=== PATIENT | male | born 1955 | race Caucasian/White ===

== ENCOUNTER 2020-06-06 09:47 | Inpatient (IN) | payer OTHER, MEDICAID ==
[~2020-06-06] VITALS: Ht 182.9 cm; Wt 115.1 kg
[2020-06-06 14:10] LABS: Basophils # (auto) 0.1 10 ^3/uL (0-0.2); Basophils % (auto) 0.9 % (0.0-2.0); Eosinophils # (auto) 0.5 10 ^3/uL (0-0.8); Eosinophils % (auto) 5.2 % (0.0-7.0); Hematocrit 32.1 % (41.0-53.0); Lymphocytes # (auto) 0.6 10 ^3/uL (0.4-5.4); Lymphocytes % (auto) 6.1 % (10.0-50.0); Mean Corpuscular Hemoglobin 31.7 pg (28.0-32.0); Mean Corpuscular Hgb Conc. 34.1 g/dL (32.0-36.0); Mean Corpuscular Volume 92.8 fL (80.0-100.0); Monocytes # (auto) 0.8 10 ^3/uL (0-1.3); Monocytes % (auto) 9.1 % (0.0-12.0); Neutrophils # (auto) 7.2 10 ^3/uL (1.6-8.6); Neutrophils % (auto) 78.7 % (37.0-80.0); Platelet Count (auto) 264 10^3/uL (140-450); Red Blood Cells 3.46 10^6/uL (4.5-5.90); Red Cell Distribution Width 18.3 % (11.8-14.3); White Blood Cell 9.2 10^3/uL (4.4-10.8)
[2020-06-06 14:21] LABS: INR 1.67 (0.9-1.15); Partial Thromboplastin Time 37.5 sec (23.0-31.2)
[2020-06-06 14:28] LABS: Anion Gap 7 (5-15); Blood Urea Nitrogen 21 mg/dL (7-18); Calcium 7.9 mg/dL (8.5-10.1); Carbon Dioxide 29 mmol/L (21-32); Chloride 100 mmol/L (98-107); Glucose 221 mg/dL (74-106); Lipase 1155 U/L (73-393); Potassium 4.3 mmol/L (3.5-5.1); Sodium 136 mmol/L (136-145)
[2020-06-06 14:38] LABS: Alanine Aminotransferase 49 U/L (16-61); Alkaline Phosphatase 254 U/L (45-117); Amylase 65 U/L (25-115); Aspartate Aminotransferase 72 U/L (15-37); BUN/Creatinine Ratio 4.8; Bilirubin, Total 19.9 mg/dL (0.2-1.0); GFR African American 18 mL/min; GFR Non-African American 15 mL/min
[2020-06-07] MEDS ORDERED: DOCUSATE SOD 100 MG CAP PO PRN (00:30)
[2020-06-07] MEDS ORDERED: ACETAMINOPHEN 325 MG TAB PO PRN (00:30)
[2020-06-07] MEDS ORDERED: HYDROcodone-ACET 5/325MG TAB PO PRN (00:30)
[2020-06-07] MEDS ORDERED: DEXTROSE (50%) 50ML SYRG IV PRN (00:30)
[2020-06-07] MEDS ORDERED: NITROGLYCERIN 0.4 MG SL TAB SL PRN (00:30)
[2020-06-07] MEDS ORDERED: MORPHINE SULF INJ 2 MG/ML SYRINGE 1ML IV PRN (00:30)
[2020-06-07 09:19] LABS: Basophils # (auto) 0.1 10 ^3/uL (0-0.2); Basophils % (auto) 1.2 % (0.0-2.0); Eosinophils # (auto) 0.2 10 ^3/uL (0-0.8); Hematocrit 30.3 % (41.0-53.0); Hemoglobin 10.5 g/dL (13.5-17.5); Lymphocytes # (auto) 0.6 10 ^3/uL (0.4-5.4); Lymphocytes % (auto) 5.4 % (10.0-50.0); Mean Corpuscular Hemoglobin 32.3 pg (28.0-32.0); Mean Corpuscular Hgb Conc. 34.7 g/dL (32.0-36.0); Mean Corpuscular Volume 92.9 fL (80.0-100.0); Monocytes # (auto) 1.1 10 ^3/uL (0-1.3); Monocytes % (auto) 9.4 % (0.0-12.0); Neutrophils # (auto) 9.5 10 ^3/uL (1.6-8.6); Platelet Count (auto) 259 10^3/uL (140-450); Red Blood Cells 3.26 10^6/uL (4.5-5.90); Red Cell Distribution Width 18.6 % (11.8-14.3); White Blood Cell 11.6 10^3/uL (4.4-10.8)
[2020-06-07] MEDS: SODIUM CHLOR 0.9% PF (SALINE LOCK) 10ML VIAL/SYR IV SCH ×3 (09:52→22:56)
[2020-06-07] MEDS: ACCU-CHEK COMFORT CURVE STRIP VI SCH ×4 (09:52→22:57)
[2020-06-07] MEDS: InsuLIN REG 1unit/0.01ml Soln (100units/ml) SC SCH ×4 (09:53→22:56)
[2020-06-07 10:26] LABS: BUN/Creatinine Ratio 5.1; Bilirubin, Total 20.6 mg/dL (0.2-1.0); Calcium 7.9 mg/dL (8.5-10.1); Potassium 4.9 mmol/L (3.5-5.1); Total Protein 5.9 g/dL (6.4-8.2)
[2020-06-07] MEDS: ZINC SULFATE 220mg CAP or TAB PO SCH (11:04)
[2020-06-07] MEDS: HEPARIN SODIUM (PORCINE) 5000 UNITS/ML 1ML VIAL SC SCH (11:05)
[2020-06-07] MEDS: FAMOTIDINE 20 MG TAB PO SCH ×2 (11:05→22:56)
[2020-06-07] MEDS: MULTIPLE VITAMIN TAB PO SCH (11:05)
[2020-06-07] MEDS: ASCORBIC ACID 500 MG TAB PO SCH ×2 (11:05→22:56)
[2020-06-07] MEDS: MORPHINE SULFATE 4 MG/ML SYR/VIAL IV PRN (22:57)
[2020-06-07] MEDS: ONDANSETRON HCL 4 MG/2 ML VIAL IV PRN (22:57)
[2020-06-08] MEDS: HEPARIN SODIUM (PORCINE) 5000 UNITS/ML 1ML VIAL SC SCH ×3 (02:35→23:47)
[2020-06-08 05:47] LABS: Basophils # (auto) 0.1 10 ^3/uL (0-0.2); Basophils % (auto) 0.8 % (0.0-2.0); Eosinophils # (auto) 0.4 10 ^3/uL (0-0.8); Eosinophils % (auto) 4.1 % (0.0-7.0); Hematocrit 31.8 % (41.0-53.0); Hemoglobin 10.8 g/dL (13.5-17.5); Lymphocytes # (auto) 0.7 10 ^3/uL (0.4-5.4); Mean Corpuscular Hemoglobin 31.7 pg (28.0-32.0); Mean Corpuscular Hgb Conc. 33.9 g/dL (32.0-36.0); Mean Corpuscular Volume 93.4 fL (80.0-100.0); Monocytes # (auto) 1.2 10 ^3/uL (0-1.3); Monocytes % (auto) 11.1 % (0.0-12.0); Neutrophils # (auto) 8.1 10 ^3/uL (1.6-8.6); Platelet Count (auto) 263 10^3/uL (140-450); Red Cell Distribution Width 18.6 % (11.8-14.3); White Blood Cell 10.5 10^3/uL (4.4-10.8)
[2020-06-08 05:59] LABS: Albumin 1.9 g/dL (3.4-5.0); Calcium 8.1 mg/dL (8.5-10.1); Potassium 4.7 mmol/L (3.5-5.1)
[2020-06-08 06:03] LABS: BUN/Creatinine Ratio 5.5; Bilirubin, Total 19.6 mg/dL (0.2-1.0); Total Protein 5.6 g/dL (6.4-8.2)
[2020-06-08] MEDS ORDERED: SODIUM CHL 0.9% 1000 ML BAG XX ONE (07:00)
[2020-06-08] MEDS: InsuLIN REG 1unit/0.01ml Soln (100units/ml) SC SCH ×4 (07:49→23:48)
[2020-06-08] MEDS: ACCU-CHEK COMFORT CURVE STRIP VI SCH ×4 (07:49→23:48)
[2020-06-08] MEDS: SODIUM CHLOR 0.9% PF (SALINE LOCK) 10ML VIAL/SYR IV SCH ×2 (07:49→14:03)
[2020-06-08] MEDS: ZINC SULFATE 220mg CAP or TAB PO SCH (09:10)
[2020-06-08] MEDS: FAMOTIDINE 20 MG TAB PO SCH ×2 (09:10→23:46)
[2020-06-08] MEDS: MULTIPLE VITAMIN TAB PO SCH (09:10)
[2020-06-08] MEDS: ASCORBIC ACID 500 MG TAB PO SCH ×2 (09:10→23:46)
[2020-06-09] VITALS: BP 110/57
[2020-06-09] MEDS: SODIUM CHLOR 0.9% PF (SALINE LOCK) 10ML VIAL/SYR IV SCH ×5 (00:01→23:00)
[2020-06-09] MEDS: InsuLIN REG 1unit/0.01ml Soln (100units/ml) SC SCH ×4 (06:53→22:00)
[2020-06-09] MEDS: ACCU-CHEK COMFORT CURVE STRIP VI SCH ×4 (06:59→22:00)
[2020-06-09 08:31] VITALS: BP 100/58
[2020-06-09] MEDS: HEPARIN SODIUM (PORCINE) 5000 UNITS/ML 1ML VIAL SC SCH ×2 (11:45→22:00)
[2020-06-09] MEDS: MULTIPLE VITAMIN TAB PO SCH (12:36)
[2020-06-09] MEDS: ZINC SULFATE 220mg CAP or TAB PO SCH (12:36)
[2020-06-09] MEDS: FAMOTIDINE 20 MG TAB PO SCH ×2 (12:37→22:00)
[2020-06-09] MEDS: ASCORBIC ACID 500 MG TAB PO SCH ×2 (12:37→22:00)
[2020-06-09 12:40] VITALS: BP 111/52
[2020-06-09 17:00] VITALS: BP 113/58
[2020-06-10] VITALS: BP 125/76
[2020-06-10 05:31] LABS: Urine Bacteria NONE SEEN /hpf (None Seen); Urine Blood Negative /uL (Negative); Urine Mucus FEW (None Seen); Urine Specific Gravity 1.009 (1.001-1.035); Urine Sperm PRESENT /hpf (None Seen); Urine WBC 9 /hpf (0 - 3)
[2020-06-10 05:47] LABS: Basophils # (auto) 0.1 10 ^3/uL (0-0.2); Basophils % (auto) 1.3 % (0.0-2.0); Eosinophils # (auto) 0.4 10 ^3/uL (0-0.8); Eosinophils % (auto) 4.8 % (0.0-7.0); Hematocrit 30.5 % (41.0-53.0); Hemoglobin 10.3 g/dL (13.5-17.5); Lymphocytes # (auto) 0.9 10 ^3/uL (0.4-5.4); Lymphocytes % (auto) 9.9 % (10.0-50.0); Mean Corpuscular Hemoglobin 31.2 pg (28.0-32.0); Mean Corpuscular Hgb Conc. 33.6 g/dL (32.0-36.0); Mean Corpuscular Volume 92.9 fL (80.0-100.0); Monocytes # (auto) 0.9 10 ^3/uL (0-1.3); Monocytes % (auto) 10.1 % (0.0-12.0); Neutrophils # (auto) 6.5 10 ^3/uL (1.6-8.6); Neutrophils % (auto) 73.9 % (37.0-80.0); Nucleated Red Blood Cells % 0.1 %; Platelet Count (auto) 316 10^3/uL (140-450); Red Blood Cells 3.28 10^6/uL (4.5-5.90); Red Cell Distribution Width 18.8 % (11.8-14.3); White Blood Cell 8.8 10^3/uL (4.4-10.8)
[2020-06-10 05:52] LABS: Potassium 4.1 mmol/L (3.5-5.1)
[2020-06-10 05:55] LABS: Albumin 1.9 g/dL (3.4-5.0); Magnesium 2.1 mg/dL (1.6-2.6)
[2020-06-10] MEDS: InsuLIN REG 1unit/0.01ml Soln (100units/ml) SC SCH ×4 (06:07→22:00)
[2020-06-10 06:08] LABS: Bilirubin, Total 21.6 mg/dL (0.2-1.0); Total Protein 5.7 g/dL (6.4-8.2)
[2020-06-10] MEDS: ACCU-CHEK COMFORT CURVE STRIP VI SCH ×4 (06:09→22:00)
[2020-06-10 06:17] LABS: BUN/Creatinine Ratio 4.8
[2020-06-10] MEDS ORDERED: SODIUM CHL 0.9% 1000 ML BAG XX ONE (07:00)
[2020-06-10 08:00] VITALS: BP 122/71
[2020-06-10] MEDS: HEPARIN SODIUM (PORCINE) 5000 UNITS/ML 1ML VIAL SC SCH ×2 (10:00→22:00)
[2020-06-10] MEDS ORDERED: CILO100T PO (10:12)
[2020-06-10] MEDS ORDERED: ASPI-498 OR (10:12)
[2020-06-10] MEDS ORDERED: ATOR20TA PO (10:12)
[2020-06-10] MEDS ORDERED: DARB40IN3 IJ (10:12)
[2020-06-10] MEDS ORDERED: CALC0.25 PO (10:12)
[2020-06-10] MEDS ORDERED: CINA30TA2 PO (10:12)
[2020-06-10] MEDS ORDERED: SEVE800T8 PO (10:12)
[2020-06-10] MEDS ORDERED: BUME2TAB5 PO (10:12)
[2020-06-10] MEDS ORDERED: TAMS0.4C36 PO (10:12)
[2020-06-10] MEDS: ZINC SULFATE 220mg CAP or TAB PO SCH (10:13)
[2020-06-10] MEDS: MULTIPLE VITAMIN TAB PO SCH (10:13)
[2020-06-10] MEDS: FAMOTIDINE 20 MG TAB PO SCH ×2 (13:04→21:54)
[2020-06-10] MEDS: ASCORBIC ACID 500 MG TAB PO SCH ×2 (13:06→21:54)
[2020-06-10 16:12] VITALS: BP 118/57
[2020-06-10] MEDS: SODIUM CHLOR 0.9% PF (SALINE LOCK) 10ML VIAL/SYR IV SCH ×2 (18:31→21:54)
[2020-06-10 22:00] VITALS: BP 115/54
[2020-06-11] VITALS (12 sets, daily range): BP systolic 110–136; BP diastolic 61–74
[2020-06-11] MEDS: InsuLIN REG 1unit/0.01ml Soln (100units/ml) SC SCH ×4 (05:48→20:26)
[2020-06-11] MEDS: SODIUM CHLOR 0.9% PF (SALINE LOCK) 10ML VIAL/SYR IV SCH ×3 (05:48→20:25)
[2020-06-11] MEDS: ACCU-CHEK COMFORT CURVE STRIP VI SCH ×4 (05:49→20:26)
[2020-06-11 07:25] LABS: Basophils # (auto) 0.1 10 ^3/uL (0-0.2); Basophils % (auto) 1.6 % (0.0-2.0); Eosinophils # (auto) 0.5 10 ^3/uL (0-0.8); Eosinophils % (auto) 5.6 % (0.0-7.0); Hematocrit 26.4 % (41.0-53.0); Hemoglobin 9.3 g/dL (13.5-17.5); Lymphocytes # (auto) 0.6 10 ^3/uL (0.4-5.4); Lymphocytes % (auto) 7.9 % (10.0-50.0); Mean Corpuscular Hgb Conc. 35.3 g/dL (32.0-36.0); Mean Corpuscular Volume 90.8 fL (80.0-100.0); Monocytes # (auto) 1.1 10 ^3/uL (0-1.3); Monocytes % (auto) 14.1 % (0.0-12.0); Neutrophils # (auto) 5.7 10 ^3/uL (1.6-8.6); Neutrophils % (auto) 70.8 % (37.0-80.0); Nucleated Red Blood Cells % 0.1 %; Platelet Count (auto) 275 10^3/uL (140-450); Red Blood Cells 2.91 10^6/uL (4.5-5.90); Red Cell Distribution Width 18.6 % (11.8-14.3)
[2020-06-11 07:40] LABS: Potassium 3.8 mmol/L (3.5-5.1)
[2020-06-11 07:53] LABS: Albumin 1.7 g/dL (3.4-5.0); Bilirubin, Total 18.5 mg/dL (0.2-1.0); Calcium 7.6 mg/dL (8.5-10.1); Magnesium 1.9 mg/dL (1.6-2.6); Total Protein 5.3 g/dL (6.4-8.2)
[2020-06-11 07:56] LABS: INR 2.45 (0.9-1.15)
[2020-06-11] MEDS: HEPARIN SODIUM (PORCINE) 5000 UNITS/ML 1ML VIAL SC SCH ×2 (10:00→20:27)
[2020-06-11] MEDS: FAMOTIDINE 20 MG TAB PO SCH ×2 (10:00→20:25)
[2020-06-11] MEDS: MULTIPLE VITAMIN TAB PO SCH (10:00)
[2020-06-11] MEDS: ZINC SULFATE 220mg CAP or TAB PO SCH (10:00)
[2020-06-11] MEDS: ASCORBIC ACID 500 MG TAB PO SCH ×2 (10:00→20:25)
[2020-06-12] MEDS: ACCU-CHEK COMFORT CURVE STRIP VI SCH ×4 (05:41→23:20)
[2020-06-12] MEDS: SODIUM CHLOR 0.9% PF (SALINE LOCK) 10ML VIAL/SYR IV SCH ×3 (05:41→23:02)
[2020-06-12] MEDS: InsuLIN REG 1unit/0.01ml Soln (100units/ml) SC SCH ×4 (05:42→23:25)
[2020-06-12] MEDS ORDERED: SODIUM CHL 0.9% 1000 ML BAG XX ONE (07:00)
[2020-06-12 08:44] LABS: Basophils # (auto) 0.1 10 ^3/uL (0-0.2); Basophils % (auto) 1.6 % (0.0-2.0); Eosinophils # (auto) 0.5 10 ^3/uL (0-0.8); Eosinophils % (auto) 5.4 % (0.0-7.0); Hematocrit 26.5 % (41.0-53.0); Hemoglobin 9.3 g/dL (13.5-17.5); Lymphocytes # (auto) 0.5 10 ^3/uL (0.4-5.4); Lymphocytes % (auto) 5.5 % (10.0-50.0); Mean Corpuscular Hemoglobin 32.2 pg (28.0-32.0); Mean Corpuscular Hgb Conc. 35.2 g/dL (32.0-36.0); Mean Corpuscular Volume 91.6 fL (80.0-100.0); Monocytes # (auto) 1.2 10 ^3/uL (0-1.3); Monocytes % (auto) 13.2 % (0.0-12.0); Neutrophils # (auto) 6.7 10 ^3/uL (1.6-8.6); Neutrophils % (auto) 74.3 % (37.0-80.0); Platelet Count (auto) 269 10^3/uL (140-450); Red Cell Distribution Width 18.5 % (11.8-14.3); White Blood Cell 9.1 10^3/uL (4.4-10.8)
[2020-06-12 09:00] VITALS: BP 141/75
[2020-06-12] MEDS ORDERED: IOHEXOL 300 MG/ML 100ML BOTTLE IJ ONE (09:15)
[2020-06-12 09:16] LABS: Potassium 4.1 mmol/L (3.5-5.1)
[2020-06-12 09:27] LABS: Albumin 1.8 g/dL (3.4-5.0); BUN/Creatinine Ratio 5.1; Bilirubin, Total 20.6 mg/dL (0.2-1.0); Magnesium 2.1 mg/dL (1.6-2.6); Total Protein 5.6 g/dL (6.4-8.2)
[2020-06-12] MEDS: MULTIPLE VITAMIN TAB PO SCH (10:00)
[2020-06-12] MEDS: ASCORBIC ACID 500 MG TAB PO SCH ×2 (10:00→23:06)
[2020-06-12] MEDS: FAMOTIDINE 20 MG TAB PO SCH ×2 (10:00→23:06)
[2020-06-12] MEDS: HEPARIN SODIUM (PORCINE) 5000 UNITS/ML 1ML VIAL SC SCH (10:00)
[2020-06-12] MEDS: ZINC SULFATE 220mg CAP or TAB PO SCH (10:00)
[2020-06-12 10:29] LABS: INR 2.5 (0.9-1.15); Partial Thromboplastin Time 42.4 sec (23.0-31.2)
[2020-06-12] MEDS ORDERED: fentaNYL CITRATE 100 MCG/2 ML VL ONE (10:48)
[2020-06-12] MEDS ORDERED: MIDAZOLAM HCL 1MG/1ML-2 ML VIAL ONE (10:48)
[2020-06-12] MEDS ORDERED: PROPOFOL 10 MG/ML 20 ML IV ONE (10:53)
[2020-06-12] MEDS ORDERED: ePHEDrine SULFATE 50 MG/ML AMP IV PRN (11:30)
[2020-06-12] MEDS ORDERED: fentaNYL CITRATE 100 MCG/2 ML VL IV PRN (11:30)
[2020-06-12] MEDS ORDERED: ONDANSETRON HCL 4 MG/2 ML VIAL IV PRN (11:30)
[2020-06-12] MEDS ORDERED: hydrALAZINE HCL 20 MG/ML VL IV PRN (11:30)
[2020-06-12 13:00] VITALS: BP 145/68
[2020-06-12] MEDS ORDERED: EPOETIN ALFA 10,000 UNIT/1 ML VIAL SC ONE (21:00)
[2020-06-12] MEDS ORDERED: PHYTONADIONE(VitK) ORAL Susp 10mg/10ml(1mg/ml) PO ONE (21:45)
[2020-06-12] MEDS ORDERED: VANCOMYCIN PER PHARMACY 0 MG IV SCH (21:45)
[2020-06-12 22:00] VITALS: BP 125/62
[2020-06-12] MEDS ORDERED: VANCOMYCIN 1GM/250ML 250 ML IV ONE (22:00)
[2020-06-12] MEDS ORDERED: PHYTONADIONE(VIT K) 5 MG TAB PO ONE (23:30)
[2020-06-13] VITALS (16 sets, daily range): BP systolic 107–161; BP diastolic 52–79
[2020-06-13] MEDS: InsuLIN REG 1unit/0.01ml Soln (100units/ml) SC SCH ×4 (06:33→21:44)
[2020-06-13] MEDS: SODIUM CHLOR 0.9% PF (SALINE LOCK) 10ML VIAL/SYR IV SCH ×3 (06:33→21:48)
[2020-06-13] MEDS: ACCU-CHEK COMFORT CURVE STRIP VI SCH ×4 (06:34→21:48)
[2020-06-13] MEDS ORDERED: SODIUM CHL 0.9% 1000 ML BAG XX ONE (07:00)
[2020-06-13 09:57] LABS: Basophils # (auto) 0.1 10 ^3/uL (0-0.2); Eosinophils # (auto) 0.7 10 ^3/uL (0-0.8); Eosinophils % (auto) 7.4 % (0.0-7.0); Hematocrit 27.9 % (41.0-53.0); Hemoglobin 9.8 g/dL (13.5-17.5); Lymphocytes # (auto) 0.5 10 ^3/uL (0.4-5.4); Lymphocytes % (auto) 4.9 % (10.0-50.0); Mean Corpuscular Hemoglobin 31.3 pg (28.0-32.0); Mean Corpuscular Volume 89.4 fL (80.0-100.0); Monocytes % (auto) 9.9 % (0.0-12.0); Neutrophils # (auto) 7.5 10 ^3/uL (1.6-8.6); Neutrophils % (auto) 76.8 % (37.0-80.0); Nucleated Red Blood Cells % 0.1 %; Platelet Count (auto) 290 10^3/uL (140-450); Red Blood Cells 3.12 10^6/uL (4.5-5.90); Red Cell Distribution Width 18.9 % (11.8-14.3); White Blood Cell 9.7 10^3/uL (4.4-10.8)
[2020-06-13 10:17] LABS: INR 1.77 (0.9-1.15); Partial Thromboplastin Time 39.4 sec (23.0-31.2)
[2020-06-13] MEDS: ASCORBIC ACID 500 MG TAB PO SCH ×2 (10:17→21:05)
[2020-06-13] MEDS: FAMOTIDINE 20 MG TAB PO SCH ×2 (10:17→21:06)
[2020-06-13] MEDS: ZINC SULFATE 220mg CAP or TAB PO SCH (10:17)
[2020-06-13] MEDS: MULTIPLE VITAMIN TAB PO SCH (10:17)
[2020-06-13] MEDS: PHYTONADIONE(VitK) ORAL Susp 10mg/10ml(1mg/ml) PO SCH (10:17)
[2020-06-13 10:21] LABS: Potassium 3.4 mmol/L (3.5-5.1)
[2020-06-13 10:23] LABS: % Iron Saturation 99.3 % (20-55)
[2020-06-13 10:32] LABS: Bilirubin, Total 21.4 mg/dL (0.2-1.0); Magnesium 2.2 mg/dL (1.6-2.6)
[2020-06-13] MEDS ORDERED: VANCOMYCIN 1GM/250ML 250 ML IV ONE (13:00)
[2020-06-13] MEDS ORDERED: EPOETIN ALFA 10,000 UNIT/1 ML VIAL SC ONE (21:00)
[2020-06-14 05:06] VITALS: BP 130/54
[2020-06-14 05:07] VITALS: BP 134/68
[2020-06-14] MEDS: SODIUM CHLOR 0.9% PF (SALINE LOCK) 10ML VIAL/SYR IV SCH ×3 (05:26→21:49)
[2020-06-14] MEDS: ACCU-CHEK COMFORT CURVE STRIP VI SCH ×4 (06:12→21:16)
[2020-06-14] MEDS: InsuLIN REG 1unit/0.01ml Soln (100units/ml) SC SCH ×4 (06:13→21:30)
[2020-06-14] MEDS: FAMOTIDINE 20 MG TAB PO SCH ×2 (09:15→21:14)
[2020-06-14] MEDS: ZINC SULFATE 220mg CAP or TAB PO SCH (09:15)
[2020-06-14] MEDS: MULTIPLE VITAMIN TAB PO SCH (09:15)
[2020-06-14] MEDS: ASCORBIC ACID 500 MG TAB PO SCH ×2 (09:16→21:14)
[2020-06-14] MEDS: PHYTONADIONE(VitK) ORAL Susp 10mg/10ml(1mg/ml) PO SCH (09:16)
[2020-06-14 09:29] LABS: Basophils # (auto) 0.1 10 ^3/uL (0-0.2); Basophils % (auto) 0.8 % (0.0-2.0); Eosinophils % (auto) 9.4 % (0.0-7.0); Hematocrit 30.8 % (41.0-53.0); Hemoglobin 10.5 g/dL (13.5-17.5); Lymphocytes # (auto) 0.7 10 ^3/uL (0.4-5.4); Lymphocytes % (auto) 6.5 % (10.0-50.0); Mean Corpuscular Hemoglobin 31.2 pg (28.0-32.0); Mean Corpuscular Volume 91.7 fL (80.0-100.0); Monocytes # (auto) 1.2 10 ^3/uL (0-1.3); Monocytes % (auto) 11.9 % (0.0-12.0); Neutrophils # (auto) 7.4 10 ^3/uL (1.6-8.6); Neutrophils % (auto) 71.4 % (37.0-80.0); Nucleated Red Blood Cells % 0.2 %; Platelet Count (auto) 296 10^3/uL (140-450); Red Blood Cells 3.36 10^6/uL (4.5-5.90); Red Cell Distribution Width 18.5 % (11.8-14.3); White Blood Cell 10.4 10^3/uL (4.4-10.8)
[2020-06-14 09:56] LABS: BUN/Creatinine Ratio 4.5; Calcium 8.2 mg/dL (8.5-10.1)
[2020-06-14 21:53] VITALS: BP 115/63
[2020-06-15] VITALS (8 sets, daily range): BP systolic 101–156; BP diastolic 49–84
[2020-06-15 04:48] LABS: Basophils # (auto) 0.2 10 ^3/uL (0-0.2); Basophils % (auto) 1.8 % (0.0-2.0); Eosinophils # (auto) 0.9 10 ^3/uL (0-0.8); Eosinophils % (auto) 9.3 % (0.0-7.0); Hematocrit 26.8 % (41.0-53.0); Hemoglobin 9.2 g/dL (13.5-17.5); Lymphocytes # (auto) 0.7 10 ^3/uL (0.4-5.4); Lymphocytes % (auto) 7.5 % (10.0-50.0); Mean Corpuscular Hgb Conc. 34.4 g/dL (32.0-36.0); Mean Corpuscular Volume 90.2 fL (80.0-100.0); Monocytes # (auto) 1.1 10 ^3/uL (0-1.3); Monocytes % (auto) 11.2 % (0.0-12.0); Neutrophils # (auto) 6.6 10 ^3/uL (1.6-8.6); Neutrophils % (auto) 70.2 % (37.0-80.0); Nucleated Red Blood Cells % 0.2 %; Platelet Count (auto) 269 10^3/uL (140-450); Red Blood Cells 2.97 10^6/uL (4.5-5.90); Red Cell Distribution Width 18.2 % (11.8-14.3); White Blood Cell 9.4 10^3/uL (4.4-10.8)
[2020-06-15 05:04] LABS: INR 1.59 (0.9-1.15); Partial Thromboplastin Time 37.8 sec (23.0-31.2)
[2020-06-15 05:28] LABS: Potassium 4.6 mmol/L (3.5-5.1)
[2020-06-15 05:39] LABS: Albumin 1.7 g/dL (3.4-5.0); BUN/Creatinine Ratio 5.1; Bilirubin, Total 19.9 mg/dL (0.2-1.0); Calcium 7.7 mg/dL (8.5-10.1); Total Protein 5.4 g/dL (6.4-8.2)
[2020-06-15] MEDS: ACCU-CHEK COMFORT CURVE STRIP VI SCH ×4 (06:22→21:04)
[2020-06-15] MEDS: InsuLIN REG 1unit/0.01ml Soln (100units/ml) SC SCH ×4 (06:22→21:34)
[2020-06-15] MEDS: SODIUM CHLOR 0.9% PF (SALINE LOCK) 10ML VIAL/SYR IV SCH ×3 (06:23→22:41)
[2020-06-15] MEDS: FAMOTIDINE 20 MG TAB PO SCH ×2 (10:00→21:03)
[2020-06-15] MEDS: ASCORBIC ACID 500 MG TAB PO SCH ×2 (10:00→21:03)
[2020-06-15] MEDS: ZINC SULFATE 220mg CAP or TAB PO SCH (10:00)
[2020-06-15] MEDS: PHYTONADIONE(VitK) ORAL Susp 10mg/10ml(1mg/ml) PO SCH (10:00)
[2020-06-15] MEDS: MULTIPLE VITAMIN TAB PO SCH (10:00)
[2020-06-15] MEDS ORDERED: IODIXANOL 320MG/ML 100ML BTL IV ONE (12:16)
[2020-06-15] MEDS ORDERED: MIDAZOLAM HCL 1MG/1ML-2 ML VIAL ONE (12:16)
[2020-06-15] MEDS ORDERED: fentaNYL CITRATE 100 MCG/2 ML VL ONE (12:16)
[2020-06-15] MEDS ORDERED: LIDOCAINE 2%HCL (LOCAL ANESTH.) INJ 20ML MDV ONE ×5 (12:16→14:37)
[2020-06-15] MEDS ORDERED: cefTRIAXone 1GM/50ML D5W 50 ML IV ONE (13:03)
[2020-06-15] MEDS: MORPHINE SULFATE 4 MG/ML SYR/VIAL IV PRN ×2 (18:32→22:40)
[2020-06-15] MEDS: ONDANSETRON HCL 4 MG/2 ML VIAL IV PRN (18:35)
[2020-06-16 05:00] VITALS: BP 133/75
[2020-06-16] MEDS: ONDANSETRON HCL 4 MG/2 ML VIAL IV PRN ×3 (05:11→21:35)
[2020-06-16] MEDS: SODIUM CHLOR 0.9% PF (SALINE LOCK) 10ML VIAL/SYR IV SCH ×3 (05:11→21:34)
[2020-06-16 05:25] LABS: Basophils # (auto) 0 10 ^3/uL (0-0.2); Basophils % (auto) 0.5 % (0.0-2.0); Eosinophils # (auto) 0.6 10 ^3/uL (0-0.8); Eosinophils % (auto) 6.5 % (0.0-7.0); Hematocrit 28.7 % (41.0-53.0); Hemoglobin 9.7 g/dL (13.5-17.5); Lymphocytes # (auto) 0.6 10 ^3/uL (0.4-5.4); Lymphocytes % (auto) 6.2 % (10.0-50.0); Mean Corpuscular Hemoglobin 30.7 pg (28.0-32.0); Mean Corpuscular Hgb Conc. 33.9 g/dL (32.0-36.0); Mean Corpuscular Volume 90.6 fL (80.0-100.0); Monocytes # (auto) 0.9 10 ^3/uL (0-1.3); Neutrophils # (auto) 6.9 10 ^3/uL (1.6-8.6); Neutrophils % (auto) 76.8 % (37.0-80.0); Nucleated Red Blood Cells % 0.2 %; Platelet Count (auto) 280 10^3/uL (140-450); Red Blood Cells 3.16 10^6/uL (4.5-5.90); Red Cell Distribution Width 19.1 % (11.8-14.3)
[2020-06-16 05:42] LABS: INR 1.73 (0.9-1.15); Partial Thromboplastin Time 40.8 sec (23.0-31.2)
[2020-06-16 05:48] LABS: Albumin 1.7 g/dL (3.4-5.0); Calcium 8.1 mg/dL (8.5-10.1); Potassium 4.6 mmol/L (3.5-5.1)
[2020-06-16 05:51] LABS: BUN/Creatinine Ratio 5.3; Bilirubin, Total 20.7 mg/dL (0.2-1.0)
[2020-06-16] MEDS: InsuLIN REG 1unit/0.01ml Soln (100units/ml) SC SCH ×4 (06:08→21:35)
[2020-06-16] MEDS: ACCU-CHEK COMFORT CURVE STRIP VI SCH ×4 (06:09→21:35)
[2020-06-16] MEDS ORDERED: SODIUM CHL 0.9% 1000 ML BAG XX ONE (07:00)
[2020-06-16 08:10] VITALS: BP 116/69
[2020-06-16 09:00] VITALS: BP 116/65
[2020-06-16] MEDS: ASCORBIC ACID 500 MG TAB PO SCH ×2 (10:29→21:35)
[2020-06-16] MEDS: MULTIPLE VITAMIN TAB PO SCH (10:29)
[2020-06-16] MEDS: ZINC SULFATE 220mg CAP or TAB PO SCH (10:29)
[2020-06-16] MEDS: FAMOTIDINE 20 MG TAB PO SCH ×2 (10:29→21:34)
[2020-06-16] MEDS: PHYTONADIONE(VitK) ORAL Susp 10mg/10ml(1mg/ml) PO SCH (10:42)
[2020-06-16 12:00] VITALS: BP 114/60
[2020-06-16] MEDS: MORPHINE SULFATE 4 MG/ML SYR/VIAL IV PRN ×2 (15:15→21:36)
[2020-06-16 17:00] VITALS: BP 126/62
[2020-06-16] MEDS ORDERED: VANCOMYCIN 500 MG in D5W 5% 100 ML IV ONE (17:00)
[2020-06-17] VITALS: BP 103/54
[2020-06-17] MEDS: ACCU-CHEK COMFORT CURVE STRIP VI SCH ×4 (05:31→21:45)
[2020-06-17] MEDS: SODIUM CHLOR 0.9% PF (SALINE LOCK) 10ML VIAL/SYR IV SCH ×3 (05:31→21:10)
[2020-06-17] MEDS: InsuLIN REG 1unit/0.01ml Soln (100units/ml) SC SCH ×4 (05:31→21:45)
[2020-06-17 08:00] VITALS: BP 108/66
[2020-06-17 08:15] VITALS: BP 108/66
[2020-06-17] MEDS: ASCORBIC ACID 500 MG TAB PO SCH ×2 (09:39→21:10)
[2020-06-17] MEDS: FAMOTIDINE 20 MG TAB PO SCH ×2 (09:40→21:09)
[2020-06-17] MEDS: MULTIPLE VITAMIN TAB PO SCH (09:40)
[2020-06-17] MEDS: ZINC SULFATE 220mg CAP or TAB PO SCH (09:40)
[2020-06-17 09:44] LABS: Basophils # (auto) 0.1 10 ^3/uL (0-0.2); Basophils % (auto) 0.9 % (0.0-2.0); Eosinophils # (auto) 0.6 10 ^3/uL (0-0.8); Eosinophils % (auto) 6.5 % (0.0-7.0); Hematocrit 28.9 % (41.0-53.0); Hemoglobin 9.8 g/dL (13.5-17.5); Lymphocytes # (auto) 0.5 10 ^3/uL (0.4-5.4); Lymphocytes % (auto) 5.2 % (10.0-50.0); Mean Corpuscular Hemoglobin 30.4 pg (28.0-32.0); Mean Corpuscular Volume 89.4 fL (80.0-100.0); Monocytes % (auto) 10.4 % (0.0-12.0); Neutrophils # (auto) 7.6 10 ^3/uL (1.6-8.6); Nucleated Red Blood Cells % 0.2 %; Platelet Count (auto) 305 10^3/uL (140-450); Red Blood Cells 3.23 10^6/uL (4.5-5.90); Red Cell Distribution Width 19.1 % (11.8-14.3); White Blood Cell 9.8 10^3/uL (4.4-10.8)
[2020-06-17] MEDS: PHYTONADIONE(VitK) ORAL Susp 10mg/10ml(1mg/ml) PO SCH (10:40)
[2020-06-17 11:05] LABS: Albumin 1.5 g/dL (3.4-5.0); Calcium 7.8 mg/dL (8.5-10.1); Potassium 4.2 mmol/L (3.5-5.1)
[2020-06-17 11:10] LABS: BUN/Creatinine Ratio 4.9; Total Protein 5.4 g/dL (6.4-8.2)
[2020-06-17 11:50] VITALS: BP 108/66
[2020-06-17 15:00] VITALS: BP 107/58
[2020-06-18 01:00] VITALS: BP 91/53
[2020-06-18 05:12] LABS: Basophils # (auto) 0.2 10 ^3/uL (0-0.2); Basophils % (auto) 1.7 % (0.0-2.0); Eosinophils # (auto) 0.9 10 ^3/uL (0-0.8); Eosinophils % (auto) 8.2 % (0.0-7.0); Hematocrit 26.4 % (41.0-53.0); Hemoglobin 9.2 g/dL (13.5-17.5); Lymphocytes # (auto) 0.6 10 ^3/uL (0.4-5.4); Lymphocytes % (auto) 6.1 % (10.0-50.0); Mean Corpuscular Hemoglobin 31.4 pg (28.0-32.0); Mean Corpuscular Hgb Conc. 34.9 g/dL (32.0-36.0); Mean Corpuscular Volume 89.9 fL (80.0-100.0); Monocytes # (auto) 1.2 10 ^3/uL (0-1.3); Monocytes % (auto) 10.9 % (0.0-12.0); Neutrophils # (auto) 7.8 10 ^3/uL (1.6-8.6); Neutrophils % (auto) 73.1 % (37.0-80.0); Nucleated Red Blood Cells % 0.2 %; Platelet Count (auto) 300 10^3/uL (140-450); Red Blood Cells 2.94 10^6/uL (4.5-5.90); Red Cell Distribution Width 18.3 % (11.8-14.3); White Blood Cell 10.7 10^3/uL (4.4-10.8)
[2020-06-18 05:15] LABS: Albumin 1.5 g/dL (3.4-5.0); Calcium 7.8 mg/dL (8.5-10.1); Potassium 4.3 mmol/L (3.5-5.1)
[2020-06-18 05:19] LABS: BUN/Creatinine Ratio 5.8; Bilirubin, Total 14.7 mg/dL (0.2-1.0); Total Protein 4.9 g/dL (6.4-8.2)
[2020-06-18] MEDS: InsuLIN REG 1unit/0.01ml Soln (100units/ml) SC SCH ×4 (06:10→20:57)
[2020-06-18] MEDS: SODIUM CHLOR 0.9% PF (SALINE LOCK) 10ML VIAL/SYR IV SCH ×3 (06:10→20:56)
[2020-06-18] MEDS: ACCU-CHEK COMFORT CURVE STRIP VI SCH ×4 (06:14→21:00)
[2020-06-18] MEDS ORDERED: SODIUM CHL 0.9% 1000 ML BAG XX ONE (07:15)
[2020-06-18 08:00] VITALS: BP 116/63
[2020-06-18] MEDS: MULTIPLE VITAMIN TAB PO SCH (09:13)
[2020-06-18] MEDS: ZINC SULFATE 220mg CAP or TAB PO SCH (09:13)
[2020-06-18] MEDS: FAMOTIDINE 20 MG TAB PO SCH ×2 (09:13→21:00)
[2020-06-18] MEDS: ASCORBIC ACID 500 MG TAB PO SCH ×2 (09:13→21:00)
[2020-06-18] MEDS: PHYTONADIONE(VitK) ORAL Susp 10mg/10ml(1mg/ml) PO SCH (11:55)
[2020-06-18 12:00] VITALS: BP 113/57
[2020-06-18 15:55] VITALS: BP 104/63
[2020-06-18] MEDS ORDERED: VANCOMYCIN 500 MG in D5W 5% 100 ML IV ONE (16:00)
[2020-06-18] MEDS: MORPHINE SULFATE 4 MG/ML SYR/VIAL IV PRN (21:01)
[2020-06-19 00:26] VITALS: BP 99/53
[2020-06-19 05:50] VITALS: BP 129/67
[2020-06-19] MEDS: SODIUM CHLOR 0.9% PF (SALINE LOCK) 10ML VIAL/SYR IV SCH ×3 (06:32→21:16)
[2020-06-19] MEDS: ACCU-CHEK COMFORT CURVE STRIP VI SCH ×4 (06:32→21:17)
[2020-06-19] MEDS: InsuLIN REG 1unit/0.01ml Soln (100units/ml) SC SCH ×4 (06:34→21:17)
[2020-06-19 07:31] LABS: Basophils # (auto) 0.1 10 ^3/uL (0-0.2); Basophils % (auto) 0.7 % (0.0-2.0); Eosinophils # (auto) 0.7 10 ^3/uL (0-0.8); Eosinophils % (auto) 6.9 % (0.0-7.0); Hematocrit 26.5 % (41.0-53.0); Hemoglobin 9.2 g/dL (13.5-17.5); Lymphocytes # (auto) 0.7 10 ^3/uL (0.4-5.4); Lymphocytes % (auto) 6.6 % (10.0-50.0); Mean Corpuscular Hemoglobin 31.1 pg (28.0-32.0); Mean Corpuscular Hgb Conc. 34.6 g/dL (32.0-36.0); Mean Corpuscular Volume 89.7 fL (80.0-100.0); Monocytes # (auto) 1.1 10 ^3/uL (0-1.3); Monocytes % (auto) 10.5 % (0.0-12.0); Neutrophils # (auto) 7.9 10 ^3/uL (1.6-8.6); Neutrophils % (auto) 75.3 % (37.0-80.0); Platelet Count (auto) 307 10^3/uL (140-450); Red Blood Cells 2.96 10^6/uL (4.5-5.90); Red Cell Distribution Width 18.6 % (11.8-14.3); White Blood Cell 10.4 10^3/uL (4.4-10.8)
[2020-06-19 07:44] LABS: Potassium 4.1 mmol/L (3.5-5.1)
[2020-06-19 07:50] LABS: Albumin 1.5 g/dL (3.4-5.0); BUN/Creatinine Ratio 5.7; Bilirubin, Total 13.6 mg/dL (0.2-1.0); Calcium 8.3 mg/dL (8.5-10.1); Total Protein 5.5 g/dL (6.4-8.2)
[2020-06-19 09:00] VITALS: BP 99/52
[2020-06-19] MEDS: MULTIPLE VITAMIN TAB PO SCH (10:08)
[2020-06-19] MEDS: ZINC SULFATE 220mg CAP or TAB PO SCH (10:08)
[2020-06-19] MEDS: ASCORBIC ACID 500 MG TAB PO SCH ×2 (10:08→21:16)
[2020-06-19] MEDS: FAMOTIDINE 20 MG TAB PO SCH ×2 (10:15→21:16)
[2020-06-19] MEDS: PHYTONADIONE(VitK) ORAL Susp 10mg/10ml(1mg/ml) PO SCH (10:15)
[2020-06-19] MEDS ORDERED: SODIUM CHL 0.9% 1000 ML BAG XX ONE (10:45)
[2020-06-19 16:00] VITALS: BP 107/51
[2020-06-19] MEDS ORDERED: VANCOMYCIN 500 MG in D5W 5% 100 ML IV ONE (18:00)
[2020-06-19] MEDS ORDERED: VANCOMYCIN 1GM/250ML 250 ML IV ONE (18:00)
[2020-06-19] MEDS ORDERED: SODIUM CHLORIDE 0.9% 250 ML IV ONE ×2 (20:30→20:45)
[2020-06-19] MEDS ORDERED: EPOETIN ALFA 10,000 UNIT/1 ML VIAL SC ONE (21:00)
[2020-06-19 22:30] VITALS: BP 105/42
[2020-06-20 05:33] VITALS: BP 94/52
[2020-06-20] MEDS: SODIUM CHLOR 0.9% PF (SALINE LOCK) 10ML VIAL/SYR IV SCH ×3 (06:04→21:59)
[2020-06-20] MEDS: ACCU-CHEK COMFORT CURVE STRIP VI SCH ×4 (06:04→22:03)
[2020-06-20] MEDS: InsuLIN REG 1unit/0.01ml Soln (100units/ml) SC SCH ×4 (06:07→22:00)
[2020-06-20 08:00] VITALS: BP 99/47
[2020-06-20] MEDS: ASCORBIC ACID 500 MG TAB PO SCH ×2 (09:38→21:59)
[2020-06-20] MEDS: ZINC SULFATE 220mg CAP or TAB PO SCH (09:38)
[2020-06-20] MEDS: MULTIPLE VITAMIN TAB PO SCH (09:38)
[2020-06-20] MEDS: FAMOTIDINE 20 MG TAB PO SCH ×2 (09:39→21:59)
[2020-06-20] MEDS: PHYTONADIONE(VitK) ORAL Susp 10mg/10ml(1mg/ml) PO SCH (09:39)
[2020-06-20 16:25] VITALS: BP 100/61
[2020-06-20 21:48] VITALS: BP 96/65
[2020-06-21 05:06] VITALS: BP 130/66
[2020-06-21] MEDS: SODIUM CHLOR 0.9% PF (SALINE LOCK) 10ML VIAL/SYR IV SCH ×3 (06:28→22:05)
[2020-06-21] MEDS: ACCU-CHEK COMFORT CURVE STRIP VI SCH ×4 (06:29→22:11)
[2020-06-21] MEDS: InsuLIN REG 1unit/0.01ml Soln (100units/ml) SC SCH ×4 (06:31→22:00)
[2020-06-21 08:00] VITALS: BP 99/46
[2020-06-21] MEDS: FAMOTIDINE 20 MG TAB PO SCH (10:12)
[2020-06-21] MEDS: ZINC SULFATE 220mg CAP or TAB PO SCH (10:13)
[2020-06-21] MEDS: MULTIPLE VITAMIN TAB PO SCH (10:13)
[2020-06-21] MEDS: ASCORBIC ACID 500 MG TAB PO SCH ×2 (10:13→22:06)
[2020-06-21] MEDS: PHYTONADIONE(VitK) ORAL Susp 10mg/10ml(1mg/ml) PO SCH (12:51)
[2020-06-21 16:00] VITALS: BP 105/59
[2020-06-21] MEDS: TAMSULOSIN HYDROCHLORIDE 0.4 MG CAP PO SCH (17:54)
[2020-06-21] MEDS: SEVELAMER 800 MG TAB PO SCH (17:54)
[2020-06-21] MEDS ORDERED: VANCOMYCIN 1GM/250ML 250 ML IV ONE ×2 (18:00→18:15)
[2020-06-21] MEDS ORDERED: VANCOMYCIN 500 MG in D5W 5% 100 ML IV ONE (18:15)
[2020-06-21 20:00] VITALS: BP 106/57
[2020-06-21 22:00] VITALS: BP 106/57
[2020-06-21] MEDS: CILOSTAZOL 100 MG TAB PO SCH (22:05)
[2020-06-21] MEDS: ATORVASTATIN 20 MG TAB PO SCH (22:17)
[2020-06-22 05:00] VITALS: BP 112/63
[2020-06-22] MEDS: SODIUM CHLOR 0.9% PF (SALINE LOCK) 10ML VIAL/SYR IV SCH ×3 (05:46→21:21)
[2020-06-22] MEDS: InsuLIN REG 1unit/0.01ml Soln (100units/ml) SC SCH ×4 (06:06→21:17)
[2020-06-22] MEDS: ACCU-CHEK COMFORT CURVE STRIP VI SCH ×4 (06:06→21:21)
[2020-06-22 08:16] LABS: Basophils # (auto) 0.1 10 ^3/uL (0-0.2); Basophils % (auto) 0.6 % (0.0-2.0); Eosinophils # (auto) 0.6 10 ^3/uL (0-0.8); Eosinophils % (auto) 6.9 % (0.0-7.0); Hematocrit 27.3 % (41.0-53.0); Hemoglobin 9.2 g/dL (13.5-17.5); Lymphocytes # (auto) 0.6 10 ^3/uL (0.4-5.4); Lymphocytes % (auto) 7.5 % (10.0-50.0); Mean Corpuscular Hemoglobin 30.3 pg (28.0-32.0); Mean Corpuscular Hgb Conc. 33.8 g/dL (32.0-36.0); Mean Corpuscular Volume 89.7 fL (80.0-100.0); Monocytes # (auto) 0.6 10 ^3/uL (0-1.3); Monocytes % (auto) 6.7 % (0.0-12.0); Neutrophils # (auto) 6.7 10 ^3/uL (1.6-8.6); Neutrophils % (auto) 78.3 % (37.0-80.0); Platelet Count (auto) 315 10^3/uL (140-450); Red Blood Cells 3.05 10^6/uL (4.5-5.90); Red Cell Distribution Width 18.7 % (11.8-14.3); White Blood Cell 8.6 10^3/uL (4.4-10.8)
[2020-06-22 08:30] LABS: INR 1.46 (0.9-1.15); Partial Thromboplastin Time 36.8 sec (23.0-31.2)
[2020-06-22] MEDS ORDERED: SODIUM CHL 0.9% 1000 ML BAG XX ONE (08:45)
[2020-06-22 08:48] LABS: Albumin 1.5 g/dL (3.4-5.0); BUN/Creatinine Ratio 5.2; Bilirubin, Total 12.7 mg/dL (0.2-1.0); Calcium 7.9 mg/dL (8.5-10.1); Magnesium 2.1 mg/dL (1.6-2.6)
[2020-06-22 09:00] VITALS: BP 92/37
[2020-06-22] MEDS ORDERED: BUMETANIDE 1 MG TAB PO SCH (10:00)
[2020-06-22] MEDS: CALCITRIOL 0.25 MCG CAP PO SCH (10:00)
[2020-06-22] MEDS ORDERED: METO25TA5 PO (10:26)
[2020-06-22] MEDS: SEVELAMER 800 MG TAB PO SCH ×3 (10:46→17:24)
[2020-06-22] MEDS ORDERED: SODIUM CHLORIDE 0.9% 1,000 ML IV SCH (11:00)
[2020-06-22] MEDS: ZINC SULFATE 220mg CAP or TAB PO SCH (11:11)
[2020-06-22] MEDS: CILOSTAZOL 100 MG TAB PO SCH ×2 (11:13→21:20)
[2020-06-22] MEDS: MULTIPLE VITAMIN TAB PO SCH (11:13)
[2020-06-22] MEDS: CINACALCET HYDROCHLORIDE 30 MG TAB PO SCH (11:14)
[2020-06-22] MEDS: ASCORBIC ACID 500 MG TAB PO SCH ×2 (11:14→21:21)
[2020-06-22] MEDS: PHYTONADIONE(VitK) ORAL Susp 10mg/10ml(1mg/ml) PO SCH (11:18)
[2020-06-22 12:00] VITALS: BP 91/72
[2020-06-22 17:00] VITALS: BP 94/55
[2020-06-22] MEDS: TAMSULOSIN HYDROCHLORIDE 0.4 MG CAP PO SCH (17:24)
[2020-06-22] MEDS ORDERED: EPOETIN ALFA 10,000 UNIT/1 ML VIAL SC ONE (21:00)
[2020-06-22] MEDS: ATORVASTATIN 20 MG TAB PO SCH (21:21)
[2020-06-22 22:00] VITALS: BP 111/61
[2020-06-23] VITALS (26 sets, daily range): BP systolic 77–110; BP diastolic 40–63
[2020-06-23] MEDS: ACCU-CHEK COMFORT CURVE STRIP VI SCH ×4 (05:44→22:00)
[2020-06-23] MEDS: SODIUM CHLOR 0.9% PF (SALINE LOCK) 10ML VIAL/SYR IV SCH ×3 (05:44→22:00)
[2020-06-23] MEDS: InsuLIN REG 1unit/0.01ml Soln (100units/ml) SC SCH ×4 (05:44→22:00)
[2020-06-23 08:20] LABS: Potassium 4.1 mmol/L (3.5-5.1)
[2020-06-23 08:31] LABS: Calcium 8.4 mg/dL (8.5-10.1)
[2020-06-23] MEDS ORDERED: MEROPENEM 500MG IVPB 50 ML IV ONE (10:00)
[2020-06-23] MEDS: CINACALCET HYDROCHLORIDE 30 MG TAB PO SCH (10:00)
[2020-06-23] MEDS: CILOSTAZOL 100 MG TAB PO SCH ×2 (10:00→22:00)
[2020-06-23] MEDS ORDERED: IODIXANOL 320MG/ML 100ML BTL IV ONE (10:05)
[2020-06-23] MEDS ORDERED: LIDOCAINE 2%HCL (LOCAL ANESTH.) INJ 20ML MDV ONE ×2 (10:05→11:35)
[2020-06-23] MEDS ORDERED: diphenhdrAMINE HCL 50 MG/1 ML VL ONE (10:46)
[2020-06-23] MEDS ORDERED: NOREPINEPHRINE 8 MG/250ML KIT 250 ML IV ONE (11:11)
[2020-06-23] MEDS: SEVELAMER 800 MG TAB PO SCH ×2 (12:00→18:00)
[2020-06-23] MEDS ORDERED: MIDODRINE HCL 10 MG TAB PO SCH (12:00)
[2020-06-23] MEDS ORDERED: cefTRIAXone 1GM/50ML D5W 50 ML IV ONE ×2 (13:45→13:48)
[2020-06-23] MEDS: NOREPINEPHRINE 8 MG/250ML KIT 250 ML IV SCH (14:15)
[2020-06-23] MEDS ORDERED: InsuLIN REG 1unit/0.01ml Soln (100units/ml) ONE (14:54)
[2020-06-23] MEDS: MULTIPLE VITAMIN TAB PO SCH ×2 (15:14→15:24)
[2020-06-23] MEDS: ZINC SULFATE 220mg CAP or TAB PO SCH (15:14)
[2020-06-23] MEDS: MIDODRINE HCL 10 MG TAB PO SCH ×2 (15:14→18:00)
[2020-06-23] MEDS: CALCITRIOL 0.25 MCG CAP PO SCH (15:14)
[2020-06-23] MEDS: ASCORBIC ACID 500 MG TAB PO SCH ×2 (15:15→22:00)
[2020-06-23] MEDS: FAMOTIDINE 20 MG TAB PO SCH (15:15)
[2020-06-23] MEDS: PHYTONADIONE(VitK) ORAL Susp 10mg/10ml(1mg/ml) PO SCH (15:16)
[2020-06-23] MEDS: TAMSULOSIN HYDROCHLORIDE 0.4 MG CAP PO SCH (18:00)
[2020-06-23] MEDS: MEROPENEM 500MG IVPB 50 ML IV SCH (22:00)
[2020-06-23] MEDS: ATORVASTATIN 20 MG TAB PO SCH (22:00)
[2020-06-24] VITALS (90 sets, daily range): BP systolic 74–127; BP diastolic 42–96
[2020-06-24 05:13] LABS: Basophils # (auto) 0.1 10 ^3/uL (0-0.2); Eosinophils # (auto) 0.7 10 ^3/uL (0-0.8); Eosinophils % (auto) 6.2 % (0.0-7.0); Hematocrit 29.1 % (41.0-53.0); Hemoglobin 9.5 g/dL (13.5-17.5); Lymphocytes # (auto) 0.5 10 ^3/uL (0.4-5.4); Lymphocytes % (auto) 4.5 % (10.0-50.0); Mean Corpuscular Hemoglobin 30.2 pg (28.0-32.0); Mean Corpuscular Hgb Conc. 32.8 g/dL (32.0-36.0); Monocytes # (auto) 1.1 10 ^3/uL (0-1.3); Monocytes % (auto) 9.6 % (0.0-12.0); Neutrophils # (auto) 8.8 10 ^3/uL (1.6-8.6); Neutrophils % (auto) 78.7 % (37.0-80.0); Nucleated Red Blood Cells % 0.3 %; Platelet Count (auto) 317 10^3/uL (140-450); Red Blood Cells 3.16 10^6/uL (4.5-5.90); Red Cell Distribution Width 18.4 % (11.8-14.3); White Blood Cell 11.2 10^3/uL (4.4-10.8)
[2020-06-24 05:19] LABS: Albumin 1.5 g/dL (3.4-5.0); Calcium 8.1 mg/dL (8.5-10.1); Magnesium 2.3 mg/dL (1.6-2.6); Potassium 4.6 mmol/L (3.5-5.1)
[2020-06-24 05:22] LABS: BUN/Creatinine Ratio 5.2; Bilirubin, Total 12.9 mg/dL (0.2-1.0); Total Protein 5.8 g/dL (6.4-8.2)
[2020-06-24] MEDS: SODIUM CHLOR 0.9% PF (SALINE LOCK) 10ML VIAL/SYR IV SCH ×3 (06:00→21:32)
[2020-06-24] MEDS: MIDODRINE HCL 10 MG TAB PO SCH ×3 (06:00→18:18)
[2020-06-24] MEDS: ACCU-CHEK COMFORT CURVE STRIP VI SCH ×4 (06:42→21:33)
[2020-06-24] MEDS: InsuLIN REG 1unit/0.01ml Soln (100units/ml) SC SCH ×4 (06:55→21:58)
[2020-06-24] MEDS ORDERED: SODIUM CHL 0.9% 1000 ML BAG XX ONE (07:00)
[2020-06-24] MEDS: MULTIPLE VITAMIN TAB PO SCH (09:39)
[2020-06-24] MEDS: ASCORBIC ACID 500 MG TAB PO SCH ×2 (09:39→21:32)
[2020-06-24] MEDS: ZINC SULFATE 220mg CAP or TAB PO SCH (09:39)
[2020-06-24] MEDS: CILOSTAZOL 100 MG TAB PO SCH ×2 (09:41→21:32)
[2020-06-24] MEDS: MEROPENEM 500MG IVPB 50 ML IV SCH ×2 (09:42→21:32)
[2020-06-24] MEDS: SEVELAMER 800 MG TAB PO SCH ×4 (12:00→18:19)
[2020-06-24] MEDS: ONDANSETRON HCL 4 MG/2 ML VIAL IV PRN ×2 (12:10→19:28)
[2020-06-24] MEDS: MORPHINE SULFATE 4 MG/ML SYR/VIAL IV PRN (12:10)
[2020-06-24] MEDS: CALCITRIOL 0.25 MCG CAP PO SCH (12:13)
[2020-06-24] MEDS: PHYTONADIONE(VitK) ORAL Susp 10mg/10ml(1mg/ml) PO SCH (12:13)
[2020-06-24] MEDS: CINACALCET HYDROCHLORIDE 30 MG TAB PO SCH (12:13)
[2020-06-24] MEDS: SODIUM CHLORIDE 0.9% 1,000 ML IV SCH (12:15)
[2020-06-24] MEDS: NOREPINEPHRINE 8 MG/250ML KIT 250 ML IV SCH (13:17)
[2020-06-24] MEDS: TAMSULOSIN HYDROCHLORIDE 0.4 MG CAP PO SCH (18:17)
[2020-06-24] MEDS ORDERED: EPOETIN ALFA 10,000 UNIT/1 ML VIAL SC ONE (21:00)
[2020-06-24] MEDS: ATORVASTATIN 20 MG TAB PO SCH (21:32)
[2020-06-25] VITALS (49 sets, daily range): BP systolic 68–121; BP diastolic 39–72
[2020-06-25 03:48] LABS: Basophils # (auto) 0.1 10 ^3/uL (0-0.2); Hemoglobin 7.2 g/dL (13.5-17.5); Mean Corpuscular Hemoglobin 30.9 pg (28.0-32.0); White Blood Cell 8.8 10^3/uL (4.4-10.8)
[2020-06-25 03:51] LABS: Basophils % (auto) 1.3 % (0.0-2.0); Eosinophils # (auto) 0.5 10 ^3/uL (0-0.8); Eosinophils % (auto) 6.2 % (0.0-7.0); Hematocrit 21.3 % (41.0-53.0); Lymphocytes # (auto) 0.5 10 ^3/uL (0.4-5.4); Lymphocytes % (auto) 5.7 % (10.0-50.0); Mean Corpuscular Hgb Conc. 33.6 g/dL (32.0-36.0); Mean Corpuscular Volume 91.8 fL (80.0-100.0); Monocytes # (auto) 1.1 10 ^3/uL (0-1.3); Monocytes % (auto) 12.5 % (0.0-12.0); Neutrophils # (auto) 6.6 10 ^3/uL (1.6-8.6); Neutrophils % (auto) 74.3 % (37.0-80.0); Nucleated Red Blood Cells % 0.2 %; Platelet Count (auto) 229 10^3/uL (140-450); Red Blood Cells 2.33 10^6/uL (4.5-5.90); Red Cell Distribution Width 18.7 % (11.8-14.3)
[2020-06-25 04:07] LABS: BUN/Creatinine Ratio 5.6; Calcium 6.4 mg/dL (8.5-10.1); Magnesium 1.9 mg/dL (1.6-2.6); Potassium 3.6 mmol/L (3.5-5.1)
[2020-06-25] MEDS: SODIUM CHLORIDE 0.9% 1,000 ML IV SCH (04:47)
[2020-06-25] MEDS: MIDODRINE HCL 10 MG TAB PO SCH ×2 (05:30→11:04)
[2020-06-25] MEDS: SODIUM CHLOR 0.9% PF (SALINE LOCK) 10ML VIAL/SYR IV SCH ×2 (05:30→11:01)
[2020-06-25] MEDS: InsuLIN REG 1unit/0.01ml Soln (100units/ml) SC SCH ×2 (07:00→11:30)
[2020-06-25] MEDS: ACCU-CHEK COMFORT CURVE STRIP VI SCH ×2 (07:00→11:35)
[2020-06-25] MEDS: SEVELAMER 800 MG TAB PO SCH ×3 (08:00→12:00)
[2020-06-25] MEDS: CINACALCET HYDROCHLORIDE 30 MG TAB PO SCH ×2 (10:00→11:34)
[2020-06-25] MEDS: CALCITRIOL 0.25 MCG CAP PO SCH ×2 (10:00→11:34)
[2020-06-25] MEDS: CILOSTAZOL 100 MG TAB PO SCH ×2 (10:00→11:33)
[2020-06-25] MEDS: PHYTONADIONE(VitK) ORAL Susp 10mg/10ml(1mg/ml) PO SCH ×2 (10:00→11:35)
[2020-06-25] MEDS: ZINC SULFATE 220mg CAP or TAB PO SCH (11:02)
[2020-06-25] MEDS: MULTIPLE VITAMIN TAB PO SCH (11:02)
[2020-06-25] MEDS: FAMOTIDINE 20 MG TAB PO SCH (11:03)
[2020-06-25] MEDS: ASCORBIC ACID 500 MG TAB PO SCH (11:03)
[2020-06-25] MEDS: MEROPENEM 500MG IVPB 50 ML IV SCH (11:35)
[2020-06-25] MEDS ORDERED: NOREPINEPHRINE 8 MG/250ML KIT 250 ML IV SCH (12:00)
== END 2020-06-25 14:00 | disposition hospice, home (50) | DRG 435 ==
LOC: ER 09:47 → TELE 09:48 → TELE-CENTR 06-08 17:10 → CATH ICU 06-23 15:00
PROVIDERS: ADMIT Nurse Practitioner Family; ATTEND Internal Medicine Geriatric Medicine
PROC: 5A1D70Z Performance of Urinary Filtration, Intermittent, Less than 6 Hours Per Day (ICD-10-PCS; 2020-06-08)
PROC: 5A1D70Z Performance of Urinary Filtration, Intermittent, Less than 6 Hours Per Day (ICD-10-PCS; 2020-06-10)
PROC: 30233K1 Transfusion of Nonautologous Frozen Plasma into Peripheral Vein, Percutaneous Approach (ICD-10-PCS; principal; 2020-06-11)
PROC: 0FBC8ZX Excision of Ampulla of Vater, Via Natural or Artificial Opening Endoscopic, Diagnostic (ICD-10-PCS; 2020-06-12)
PROC: BF101ZZ Fluoroscopy of Bile Ducts using Low Osmolar Contrast (ICD-10-PCS; 2020-06-12)
PROC: 5A1D70Z Performance of Urinary Filtration, Intermittent, Less than 6 Hours Per Day (ICD-10-PCS; 2020-06-13)
PROC: 0F9030Z Drainage of Liver with Drainage Device, Percutaneous Approach (ICD-10-PCS; 2020-06-15)
PROC: 0F9430Z Drainage of Gallbladder with Drainage Device, Percutaneous Approach (ICD-10-PCS; 2020-06-15)
PROC: 5A1D70Z Performance of Urinary Filtration, Intermittent, Less than 6 Hours Per Day (ICD-10-PCS; 2020-06-16)
PROC: 5A1D70Z Performance of Urinary Filtration, Intermittent, Less than 6 Hours Per Day (ICD-10-PCS; 2020-06-19)
PROC: 5A1D70Z Performance of Urinary Filtration, Intermittent, Less than 6 Hours Per Day (ICD-10-PCS; 2020-06-22)
PROC: 0F24X0Z Change Drainage Device in Gallbladder, External Approach (ICD-10-PCS; 2020-06-23)
PROC: BF121ZZ Fluoroscopy of Gallbladder using Low Osmolar Contrast (ICD-10-PCS; 2020-06-23)
PROC: 5A1D70Z Performance of Urinary Filtration, Intermittent, Less than 6 Hours Per Day (ICD-10-PCS; 2020-06-25)
DX: C25.0 Malignant neoplasm of head of pancreas (principal); K85.90 Acute pancreatitis without necrosis or infection, unspecified; N18.6 End stage renal disease; K83.1 Obstruction of bile duct; D68.9 Coagulation defect, unspecified; K62.5 Hemorrhage of anus and rectum; N17.9 Acute kidney failure, unspecified; R18.8 Other ascites; C78.7 Secondary malignant neoplasm of liver and intrahepatic bile duct; Z51.5 Encounter for palliative care; Z20.822 Contact with and (suspected) exposure to COVID-19; S90.922A Unspecified superficial injury of left foot, initial encounter; R19.7 Diarrhea, unspecified; E66.01 Morbid (severe) obesity due to excess calories; N26.1 Atrophy of kidney (terminal); E11.65 Type 2 diabetes mellitus with hyperglycemia; Z99.2 Dependence on renal dialysis; D63.1 Anemia in chronic kidney disease; E11.22 Type 2 diabetes mellitus with diabetic chronic kidney disease; Z66 Do not resuscitate; N28.1 Cyst of kidney, acquired; E87.70 Fluid overload, unspecified; Z79.899 Other long term (current) drug therapy; Z88.0 Allergy status to penicillin; Z68.34 Body mass index [BMI] 34.0-34.9, adult
CPT/HCPCS: 36415; 47532; 71045; 74018; 74176; 74181; 76000; 76700; 76942; 80048; 80053; 80061; 80076; 80202; 81001; 82105; 82140; 82150; 82270; 82306; 82728; 82962; 83036; 83540; 83550; 83605; 83690; 83735; 83970; 84100; 84484; 85025; 85610; 85730; 86301; 86850; 86900; 86901; 87045; 87081; 87426; 87427; 90935; 93005; 97163; 97530; 99152; 99153; C1729; G0378; J0696; J0885; J1642; J1815; J2185; J2250; J2405; J2704; J7060; Q9967